=== PATIENT | female | born 2005 | race African-American/Black ===

== ENCOUNTER 2025-09-06 12:31 | Emergency (ER) | payer OTHER ==
[~2025-09-06] VITALS: Ht 167.6 cm; Wt 72.9 kg
[2025-09-06] MEDS: ACETAMINOPHEN 500 MG TAB PO ONE (17:00)
[2025-09-06] MEDS: KETOROLAC 60 MG/2 ML VIAL IM ONE (17:00)
[2025-09-06 18:30] VITALS: BP 122/66; TEMP 98; O2SAT 99
== END 2025-09-06 19:08 | disposition home or self-care (01) ==
LOC: M ED 12:31
DX: S20.214A Contusion of middle front wall of thorax, initial encounter (principal); M54.6 Pain in thoracic spine; Y92.9 Unspecified place or not applicable; Y93.9 Activity, unspecified; Y99.9 Unspecified external cause status; V49.40XA Driver injured in collision with unspecified motor vehicles in traffic accident, initial encounter; R00.1 Bradycardia, unspecified
CPT/HCPCS: 70450; 71046; 72125; 72128; 93005; 96372; 99284; J1885